=== PATIENT | male | born 1980 | race African-American/Black ===

== ENCOUNTER 2018-06-18 09:14 | Emergency (ER) | payer SELFPAY ==
[~2018-06-18] VITALS: Ht 167.6 cm; Wt 64.0 kg
[2018-06-18 10:51] VITALS: BP 143/69
--- OUTSIDE RECORDS SUMMARY | 2018-08-01 03:28 | XMS REPORT | Summary of Care ---
Author Author [facility] Organization [facility] Address Unknown Phone Unavailable Encounter FAISAL Crawford(ALEJANDRO) [id number] Date(s): 03/26/16 - 03/26/16 [facility] [address] [place] [address]- [phone] Discharge Diagnosis: Radiculopathy, site unspecified Discharge Disposition: Home Attending Physician: Catalino Potts DO Vital Signs Most recent to 1 oldest [Reference Range]: Height 167.64 cm (03/26/16 12:57 PM) Temperature Oral 97.7 DegF [96.4-99.1 DegF] (03/26/16 12:57 PM) Blood Pressure 135/82 mmHg [90-140/60-90 mmHg] (03/26/16 12:57 PM) Respiratory Rate 20 BRMIN [14-20 BRMIN] (03/26/16 12:57 PM) Peripheral Pulse 74 bpm Rate [60-100 bpm] (03/26/16 12:57 PM) Weight 64.091 kg (03/26/16 12:57 PM) Body Mass Index 22.81 m2 (03/26/16 12:57 PM) Problem List No data available for this section Allergies, Adverse Reactions, Alerts Substance Reaction Severity Status NKDA Active Medications Medrol Dosepak 4 mg oral tablet See Instructions, PO, Take by mouth as directed on label., X 6 day, # 1 Pack, 0 Refill(s) Start Date: 03/26/16 Stop Date: 04/01/16 Status: Ordered tramadol 50 mg oral tablet 50 mg=1 tab, PO, Q6H, PRN Pain, X 10 day, # 24 tab, 0 Refill(s) Start Date: 03/26/16 Stop Date: 04/05/16 Status: Ordered Results No data available for this section Immunizations Vaccine Date Refusal Reason diphtheria/pertussis, acel/tetanus adult 05/09/13 Procedures No data available for this section Social History Social History Type Response Smoking Status Never smoker; Type: Cigarettes; Exposure to Tobacco Smoke None; Cigarette Smoking Last 365 Days No; Reg Smoking Cessation Counseling No Assessment and Plan No data available for this section
--- OUTSIDE RECORDS SUMMARY | 2018-08-01 03:28 | XMS REPORT | CCD ---
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 Role Phone Jesús Sandy CP Allergies, Adverse Reactions, Alerts Substance Reaction Status NKDA Active Medications Medication Instructions Start Date End Date Status Motrin 800 mg, Route: PO, Drug form: TAB, 05/09/2013 05/09/2013 Completed ONCE, Dosing Weight 63.636, kg, Priority: STAT, Start date: 05/09/13 18:25:00, Stop date: 05/09/13 18:25:00 [place] 5/325 oral 1 tab, Route: PO, Dosing Weight 05/09/2013 05/09/2013 Completed tablet 63.636, kg, ONCE, Start date: 05/09/13 18:25:00, Stop date: 05/09/13 18:25:00 Motrin 800 mg oral 800 mg, 1 tab, PO, Q8H, PRN, Take 05/09/2013 Ordered tablet with food, 30 tab, Pain, Substitution Allowed Take with food tetanus/diphtheria/p 0.5 ml, Route: IM, Drug Form: INJ, 05/09/201305/09 Completed ertussis, acel Dosing Weight 63.636, kg, ONCE, (Tdap) 5 units-2.5 Start date: 05/09/13 18:17:00, Stop units-18.5 mcg/0.5 date: 05/09/13 18:17:00 mL intramuscular suspensio morphine Sulfate 4 mg, Route: IVP, ONCE, Dosing 05/09/2013 05/09/2013 Discontinued Weight 63.636, kg, Start date: 05/09/13 18:15:00, Stop date: 05/09/13 18:15:00 Immunizations Vaccine Date Status diphtheria/pertussis, acel/tetanus adult 05/09/2013 Auth (Verified) Vital Signs Most recent to oldest [Reference Range]: 1 Height 170.18 cm (05/09/2013 17:56:00) Weight 63.636 kg (05/09/2013 17:56:00)
--- OUTSIDE RECORDS SUMMARY | 2018-08-01 03:28 | XMS REPORT | Summary of Care ---
Author Author [facility] Organization [facility] Address Unknown Phone Unavailable Encounter FAISAL Hammonds) [id number] Date(s): 04/28/16 - 04/28/16 [facility] [address] [place] [phone] Discharge Diagnosis: Cough Discharge Disposition: Home Attending Physician: Ankit Chacko MD Vital Signs 1 2 3 Most recent to oldest [Reference Range]: 167.64 cm (04/28/16 11:58 AM) Height 97.9 DegF (04/28/16 2:04 PM) 98.7 DegF (04/28/16 11:58 AM) Temperature Oral [96.4-99.1 DegF] 113/73 mmHg (04/28/16 11:58 AM) Blood Pressure [90-140/60-90 mmHg] 18 BRMIN (04/28/16 2:04 PM) 16 BRMIN (04/28/16 1:37 PM) 18 BRMIN (04/28/16 11:58 AM) Respiratory Rate [14-20 BRMIN] 86 bpm (04/28/16 2:04 PM) 92 bpm (04/28/16 11:58 AM) Peripheral Pulse Rate [60-100 bpm] 64.091 kg (04/28/16 11:58 AM) Weight 22.81 m2 (04/28/16 11:58 AM) Body Mass Index Problem List No data available for this section Allergies, Adverse Reactions, Alerts Substance Reaction Severity Status NKDA Active Medications albuterol 90 mcg/inh inhalation aerosol 2 puff, INHALATION, QID, # 18 gm, 0 Refill(s) Start Date: 04/28/16 Stop Date: 05/12/16 Status: Ordered dexamethasone 10 mg, 2.5 tab, Route: PO, Drug form: TAB, ONCE, Dosing Weight 64.091, kg, Priority: STAT, Start date: 04/28/16 12:47:00 CDT, Stop date: 04/28/16 12:47:00 CDT Notes: Give with food.(Same As: Decadron) Start Date: 04/28/16 Stop Date: 04/28/16 Status: Completed DuoNeb inhalation solution 3 ml, Route: NEB, Drug Form: SOLN, Dosing Weight 64.091, kg, PRN, PRN Respiratory Protocol, Start date: 04/28/16 12:47:00 CDT, Duration: 30 day, Stop date: 05/28/16 12:46:00 CDT Notes: (Same as: Duoneb) Start Date: 04/28/16 Stop Date: 04/28/16 Status: Discontinued Results No data available for this section Immunizations Given and Recorded Vaccine Date Status Refusal Reason diphtheria/pertussis, acel/tetanus adult 05/09/13 Given Procedures No data available for this section Social History Social History Type Response Smoking Status Current every day smoker; Type: Cigarettes; Exposure to Tobacco Smoke None; Other Tobacco Frequency 1pack/3days; Cigarette Smoking Last 365 Days No; Reg Smoking Cessation Counseling No Assessment and Plan No data available for this section
== END 2018-06-18 10:50 | disposition home or self-care (01) ==
LOC: FSED 09:14
DX: L25.5 Unspecified contact dermatitis due to plants, except food (principal); F17.210 Nicotine dependence, cigarettes, uncomplicated
CPT/HCPCS: 99282

== ENCOUNTER 2018-11-21 13:37 | Emergency (ER) | payer BC ==
[~2018-11-21] VITALS: Ht 167.6 cm; Wt 64.0 kg
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
[2018-11-21] MEDS ORDERED: IBUPROFEN 400 MG TAB PO ONE (14:00)
== END 2018-11-21 13:50 | disposition home or self-care (01) ==
LOC: FSED 13:37
DX: R50.9 Fever, unspecified (principal); R05 Cough; J06.9 Acute upper respiratory infection, unspecified
CPT/HCPCS: 87400; 99283